=== PATIENT | male | born 1940 | race Caucasian/White ===

== ENCOUNTER 2016-06-02 07:21 | Inpatient (IN) | payer OTHER, BC ==
[2016-05-31 16:55] VITALS: BMI 29.8
[2016-06-02] MEDS ORDERED: HEPARIN NA (PORCINE) 5,000 UNITS/ML 1ML VIAL ONE ×3 (08:36→18:22)
[2016-06-02] MEDS ORDERED: LIDOCAINE HCL 1%, 10 MG/ML (20ML VIAL) ONE ×2 (08:36→16:28)
[2016-06-02] MEDS ORDERED: MIDAZOLAM HCL 2 MG/2 ML SINGLE DOSE VIAL ONE ×2 (08:50→18:09)
[2016-06-02] MEDS ORDERED: PROPOFOL 20 ML ONE ×7 (08:50→18:13)
[2016-06-02] MEDS ORDERED: ePHEDrine SULFATE 50 MG/1 ML AMPULE ONE (08:51)
[2016-06-02] MEDS ORDERED: ceFAZolin SODIUM 1 GM VIAL IVPB ONE (09:39)
[2016-06-02] MEDS ORDERED: LIDOCAINE HCL 1%, 10 MG/ML (20ML VIAL) IJ ONE ×2 (09:45→18:15)
[2016-06-02] MEDS ORDERED: HEPARIN INFUSION - 500 ML IVPB ONE (11:51)
[2016-06-02] MEDS ORDERED: SODIUM CHLORIDE IVPB ONE ×2 (12:00→12:25)
[2016-06-02] MEDS ORDERED: ALTEPLASE IVPB ONE ×2 (12:00→12:25)
[2016-06-02] MEDS ORDERED: SODIUM CHLORIDE 1,000 ML IV SCH ×4 (12:25→19:45)
[2016-06-02] MEDS ORDERED: LACTATED RINGERS SOLUTION 1,000 ML IV SCH ×2 (12:25→17:15)
--- NOTE | 2016-06-02 14:09 | OP ---
Operative Note - Note: Operative Date: 06/02/16 Pre-Operative Diagnosis: RLE claudication Operation: Aortogram, RLE angiogram, GERIATRIC NURSE atherectomy, SFA angioplasty, Popliteal artery angioplatsy, Thrombolysis Findings: Popliteal artery, TP trunk thrombosis Post-Operative Diagnosis: Same as Pre-op Surgeon: Pan Franklin Anesthesia: Fractional Estimated Blood Loss (mls): 150 Operative Report Dictated: Yes
--- NOTE | 2016-06-02 14:11 | HP ---
Admitting History and Physical - Admission Chief Complaint: RLE claudication for 6 months - Advance Directives Advance Directives: Yes: Living Will, Health Care Proxy - Smoking History Smoking history: Current some day smoker Have you smoked in the past 12 months: Yes - Alcohol/Substance Use Hx Alcohol Use: Yes (wine/dinner) Home Medications - Allergies Allergies/Adverse Reactions: Allergies Allergy/AdvReac Type Severity Reaction Status Date / Time Gmqszrd-Sny-Cfx Reductase AdvReac Intermediate Unverified 06/02/16 07:45 Inhibitor - Home Medications Home Medications: Ambulatory Orders Aspirin [ASA -] 325 mg PO DAILY 05/31/16 Cholecalciferol (Vitamin D3) [Vitamin D3 -] 1,000 unit PO DAILY 06/02/16 Folic Acid 0.4 mg PO DAILY 06/02/16 [place]-3 Fatty Acids [Fish Oil] 300 mg PO DAILY 06/02/16 Vitamin B Complex [B Complex # 1] 1 each PO DAILY 06/02/16 Zolpidem Tartrate 10 mg PO PRN PRN 06/02/16 Physical Examination Vital Signs: Vital Signs Temperature 97.7 F 06/02/16 07:43 Pulse Rate 74 06/02/16 07:43 Respiratory Rate 20 06/02/16 07:43 Blood Pressure 113/77 06/02/16 07:43 O2 Sat by Pulse Oximetry (%) 98 06/02/16 07:42 Constitutional: Yes: Well Nourished Eyes: Yes: WNL HENT: Yes: WNL Neck: Yes: WNL Cardiovascular: Yes: WNL Respiratory: Yes: WNL Gastrointestinal: Yes: WNL Assessment/Plan RLE claudication 1. For RLE angiogram today
[2016-06-02] MEDS ORDERED: morphine CARPU-JECT 4 MG/1 ML DISP.SYRIN IVPUSH PRN (15:21)
--- NOTE | 2016-06-02 15:41 | CONSULT ---
Consult Consult Specialty:: Pulm/CCM Referred by:: Pan Franklin Reason for Consultation:: ICU monitoring for TPA gtt - History of Present Illness Chief Complaint: claudication History of Present Illness: 75M with history listed below has had an extensive history of claudication. Patient went to the OR for angiogram atherectomy angioplasty and insertion of ecos catheter for infusion of tpa heparin gtt and saline. patient complaining of LLE calf pain. Denies nausea vomiting fevers chills chest pain or shortness of breath. upon arrical to the ICU patient was immedistely examined found to have a tender and taut calf. Vascular called and at bedside within 2 minutes. Tpa stopped concern for impending compartment syndrome patient to go back to OR. 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 Cardio/Vascular: Yes: CAD (s/p CABGx4 ), HTN, Hyperlipdemia, Other (possible CHF s/p AICD and pacemaker ) Renal/: Yes: Cancer (prostate Ca s/p resection ) Heme/Onc: Yes: Cancer - Past Surgical History Past Surgical History: Yes: AICD, CABG, Permanent Pacemaker - Alcohol/Substance Use Hx Alcohol Use: Yes (wine/dinner) - Smoking History Smoking history: Current some day smoker Have you smoked in the past 12 months: Yes Home Medications - Allergies Allergies/Adverse Reactions: Allergies Allergy/AdvReac Type Severity Reaction Status Date / Time Vpisoqg-Zwm-Wrl Reductase AdvReac Intermediate Unverified 06/02/16 07:45 Inhibitor - Home Medications Home Medications: Ambulatory Orders Aspirin [ASA -] 325 mg PO DAILY 05/31/16 Cholecalciferol (Vitamin D3) [Vitamin D3 -] 1,000 unit PO DAILY 06/02/16 Folic Acid 0.4 mg PO DAILY 06/02/16 [place]-3 Fatty Acids [Fish Oil] 300 mg PO DAILY 06/02/16 Vitamin B Complex [B Complex # 1] 1 each PO DAILY 06/02/16 Zolpidem Tartrate 10 mg PO PRN PRN 06/02/16 Review of Systems - Review of Systems Constitutional: reports: No Symptoms Eyes: reports: No Symptoms HENT: reports: No Symptoms Neck: reports: No Symptoms Cardiovascular: reports: No Symptoms Respiratory: reports: No Symptoms Gastrointestinal: reports: No Symptoms Genitourinary: reports: No Symptoms Breasts: reports: No Symptoms Reported Musculoskeletal: reports: Other (LLE claudication) Physical Exam Vital Signs: Vital Signs Temperature 97.4 F L 06/02/16 12:39 Pulse Rate 60 06/02/16 13:00 Respiratory Rate 16 06/02/16 13:00 Blood Pressure 144/80 06/02/16 13:00 O2 Sat by Pulse Oximetry (%) 98 06/02/16 13:00 Constitutional: Yes: Well Nourished, No Distress, Calm Eyes: Yes: Conjunctiva Clear, EOM Intact HENT: Yes: Atraumatic, Normocephalic Neck: Yes: Supple, Trachea Midline Cardiovascular: Yes: Regular Rate and Rhythm Respiratory: Yes: Wheezes (small amount of wheezing at bases) Gastrointestinal: Yes: Normal Bowel Sounds, Soft, Abdomen, Obese Extremities: Yes: Other (LLE calf is taut and tender to palpation capillary refill is aqequate dopplerable left PT and DP pulse palpable LLE PT pulse able to dorsiflex and plantar flex foot at ankle with some pain. decreased sensation on plantar side of food and lateral left foot) Edema: No Assessment/Plan 75M with multiple medical probelms with a long standing history of claudication presents to the ICU post op after an atherectomy angioplasty angiogram and infusion of TPA Heparin and saline. Claudication: postop day 1 stop Tpa gtt continue hep gtt LR @ 75ml/hr to go back to OR now for removal of ecos catheter HTN: not on meds well controlled HLD: will restart statin when not NPO CAD: restart aspirin when cleared by vascular sx FEN: LR @ 75ml/hr No electrolyte issues npo for now PPx: Hep after OR no GI Ppx needed will consider PT consult
[2016-06-02] MEDS ORDERED: HEPARIN INFUSION - 500 ML IVPB SCH ×3 (16:00→19:24)
--- NOTE | 2016-06-02 16:04 | PN ---
Teaching Attending Note Name of Resident: Hermes Bermeo ATTENDING PHYSICIAN STATEMENT I saw and evaluated the patient. I reviewed the resident's note and discussed the case with the resident. I agree with the resident's findings and plan as documented. SUBJECTIVE: 75 M, with listed medical history. Active daily smoker. Probable Obstructive Sleep Apnea according to his son and clinical history. S/P Aortogram, RLE angiogram, [employer] atherectomy, SFA angioplasty, Popliteal artery angioplatsy, Thrombolysis due to Popliteal artery & TP trunk thrombosis. Now seen in the ICU on IV Heparin and tPA. Noted to have increased pain and swelling of the LLE. Intake & Output 05/30/16 05/31/16 06/01/16 06/02/16 23:59 23:59 23:59 23:59 Intake Total 1300 Output Total 550 Balance 750 Weight 220 lb Last Vital Signs Temp Pulse Resp BP Pulse Ox 98.7 F 62 18 152/82 100 06/02/16 14:30 06/02/16 14:30 06/02/16 14:30 06/02/16 14:30 06/02/16 14:15 Active Medications Alteplase, Recombinant 15 mg/ (Sodium Chloride) 150 mls @ 10 mls/hr IVPB ONCE ONE Stop: 06/03/16 03:24 Sodium Chloride (Normal Saline -) 1,000 mls @ 50 mls/hr IV ASDIR ANNIKA Lactated Ringer's (Lactated Ringers Solution) 1,000 mls @ 75 mls/hr IV ASDIR ANNIKA Heparin Sodium/Dextrose (Heparin Infusion -) 500 mls @ 10 mls/hr IVPB TITR ANNIKA ; 500 UNITS/HR PRN Reason: Protocol Morphine Sulfate (Morphine Injection -) 4 mg IVPUSH Q6H PRN Constitutional: Yes: Well Nourished, No Distress, Calm Eyes: Yes: Conjunctiva Clear, EOM Intact HENT: Yes: Atraumatic, Normocephalic Neck: Yes: Supple, Trachea Midline Cardiovascular: Yes: Regular Rate and Rhythm Respiratory: Yes: Wheezes (small amount of wheezing at bases) Gastrointestinal: Yes: Normal Bowel Sounds, Soft, Abdomen, Obese Extremities: Yes: LLE calf is taut and tender to palpation, capillary refill delayed (+) pain on dorsiflexion Edema: Yes Assessment/Plan S/P Aortogram, RLE angiogram, [employer] atherectomy, SFA angioplasty, Popliteal artery angioplatsy, Thrombolysis due to popliteal artery & TP trunk thrombosis Active smoker -> likely COPD, currently not in AE (+) clinical history consistent with Obstructive Sleep Apnea PLAN: D/W Vascular surgery -> Will return for OR O2 as needed BD TX as needed Outpatient PFTs as an outpatient once stable Will need formal sleep screening after discharge AC as ordered by vascular surgery ICU monitoring Dr Manrique CCTime [phone]"
[2016-06-02] MEDS ORDERED: HEPARIN NA (PORCINE) 5,000 UNITS/ML 1ML VIAL IVPUSH PRN ×6 (16:09→19:24)
[2016-06-02] MEDS ORDERED: ONDANSETRON 4 MG/2 ML VIAL IVPUSH PRN ×2 (17:08→18:48)
[2016-06-02] MEDS ORDERED: LIDOCAINE HCL/PF 2% SDV 5ML VIAL ONE (18:14)
[2016-06-02] MEDS ORDERED: PROMETHAZINE HCL 25 MG/1 ML VIAL IVPUSH PRN (18:48)
--- NOTE | 2016-06-02 19:08 | OP ---
Operative Note - Note: Operative Date: 06/02/16 Pre-Operative Diagnosis: RLE thrombosis Operation: RLE angiogram, [employer]DER DCB angioplasty Post-Operative Diagnosis: Same as Pre-op Surgeon: Pan Franklin Anesthesia: Fractional Estimated Blood Loss (mls): 20 Operative Report Dictated: Yes
[2016-06-02] MEDS ORDERED: ZOLPIDEM TARTRATE 5 MG TABLET PO PRN (21:10)
[2016-06-02 23:23] VITALS: PULSE 60
[2016-06-03 06:40] VITALS: BP 127/74; TEMP 98
[2016-06-03] MEDS ORDERED: HEPARIN NA (PORCINE) 5,000 UNITS/ML 1ML VIAL ONE (07:12)
[2016-06-03] MEDS ORDERED: LIDOCAINE HCL 1%, 10 MG/ML (20ML VIAL) ONE (07:12)
[2016-06-03 07:57] LABS: BASOPHIL 0.5 % (0-2.0); EOSINOPHIL 2.3 % (0-4.5); MCH 32.6 pg (25.7-33.7); MEAN CELL VOLUME 98.8 fl (80-96); NEUTROPHILS 69.9 % (42.8-82.8); PLATELET COUNT 107 K/MM3 (134-434); RDW 15.6 % (11.9-15.9); WHITE BLOOD COUNT 7.4 K/mm3 (4.0-10.0)
[2016-06-03 08:41] LABS: ALBUMIN 2.9 g/dl (3.4-5.0); ANION GAP 6 (8-16); CALCIUM 8.1 mg/dL (8.5-10.1); CO2 28 mmol/L (21-32); CREATININE 0.7 mg/dL (0.7-1.3); GLUCOSE,RANDOM 105 mg/dL (74-106); SGOT/AST 14 U/L (15-37); SGPT/ALT 17 U/L (12-78)
[2016-06-03 08:43] LABS: ALK PHOS 40 U/L (45-117); BILIRUBIN,TOTAL 0.7 mg/dL (0.2-1.0)
--- NOTE | 2016-06-03 10:09 | PN ---
Teaching Attending Note Name of Resident: Hermes Bermeo ATTENDING PHYSICIAN STATEMENT I saw and evaluated the patient. I reviewed the resident's note and discussed the case with the resident. I agree with the resident's findings and plan as documented. SUBJECTIVE: Patient seen and examined in the ICU. Awake and alert. LLE improved from yesterday. No CP or SOB. Intake & Output 05/31/16 06/01/16 06/02/16 06/03/16 23:59 23:59 23:59 23:59 Intake Total 1875 1001 Output Total 1025 500 Balance 850 501 Weight 220 lb 220 lb 7.396 oz Last Vital Signs Temp Pulse Resp BP Pulse Ox 98 F 60 17 127/74 100 06/03/16 06:00 06/03/16 06:00 06/03/16 08:36 06/03/16 06:00 06/03/16 08:36 Active Medications Heparin Sodium (Porcine) (Heparin -) 1,000 unit IVPUSH PRN PRN PRN Reason: Heparin Heparin Sodium (Porcine) (Heparin -) 5,000 unit IVPUSH PRN PRN PRN Reason: Heparin Heparin Sodium/Dextrose (Heparin Infusion -) 500 mls @ 10 mls/hr IVPB TITR ANNIKA ; 500 UNITS/HR PRN Reason: Protocol Last Titration: 06/02/16 20:00 Dose: 800 units/hr Sodium Chloride (Normal Saline -) 1,000 mls @ 75 mls/hr IV ASDIR ANNIKA Last Admin: 06/02/16 20:00 Dose: 75 mls/hr Zolpidem Tartrate (Ambien -) 10 mg PO HS PRN PRN Reason: INSOMNIA Last Admin: 06/02/16 21:12 Dose: 10 mg Constitutional: Yes: Well Nourished, No Distress, Calm Eyes: Yes: Conjunctiva Clear, EOM Intact HENT: Yes: Atraumatic, Normocephalic Neck: Yes: Supple, Trachea Midline Cardiovascular: Yes: Regular Rate and Rhythm Respiratory: Yes: Wheezes (small amount of wheezing at bases) Gastrointestinal: Yes: Normal Bowel Sounds, Soft, Abdomen, Obese Extremities: Yes: LLE calf is soft and less tender to palpation Edema: Yes Laboratory Results - last 24 hr 06/03/16 06/03/16 06/03/16 01:30 07:30 07:30 WBC RBC Hgb Hct MCV MCHC RDW Plt Count MPV Neutrophils % Lymphocytes % Monocytes % Eosinophils % Basophils % PTT (Actin FS) 56.0 H 49.6 H Sodium 142 Potassium 5.0 Chloride 108 H Carbon Dioxide 28 Anion Gap 6 L BUN 15 Creatinine 0.7 Creat Clearance w eGFR > 60 Random Glucose 105 Calcium 8.1 L Total Bilirubin 0.7 AST 14 L ALT 17 Alkaline Phosphatase 40 L Total Protein 5.0 L Albumin 2.9 L 06/03/16 07:30 WBC 7.4 RBC 3.51 L D Hgb 11.5 L D Hct 34.7 L D MCV 98.8 H MCHC 33.0 RDW 15.6 Plt Count 107 L D MPV 10.0 Neutrophils % 69.9 Lymphocytes % 16.3 D Monocytes % 11.0 H D Eosinophils % 2.3 Basophils % 0.5 PTT (Actin FS) Sodium Potassium Chloride Carbon Dioxide Anion Gap BUN Creatinine Creat Clearance w eGFR Random Glucose Calcium Total Bilirubin AST ALT Alkaline Phosphatase Total Protein Albumin Assessment/Plan S/P Aortogram, RLE angiogram, FLIGHT HOSTESS atherectomy, SFA angioplasty, Popliteal artery angioplatsy, Thrombolysis due to popliteal artery & TP trunk thrombosis Active smoker -> likely COPD, currently not in AE (+) clinical history consistent with Obstructive Sleep Apnea PLAN: Need to D/W Cardiology further AC management O2 as needed BD TX as needed Outpatient PFTs as an outpatient once stable Will need formal sleep screening after discharge D/C planning Dr Manrique
--- NOTE | 2016-06-03 10:26 | PN ---
Progress Note (short form) - Note Progress Note: Anesthesia POD#1 S/P left angiogram/angioplasty under Mac Awake alert & oriented,stable vitals,no nausea. No cmplications to anesthesia seen. Martha Dupree.
--- NOTE | 2016-06-03 11:37 | PN ---
Progress Note, Physician History of Present Illness: seen and examined in ICU doing well today no complaints - Current Medication List Current Medications: Active Medications Heparin Sodium (Porcine) (Heparin -) 1,000 unit IVPUSH PRN PRN PRN Reason: Heparin Heparin Sodium (Porcine) (Heparin -) 5,000 unit IVPUSH PRN PRN PRN Reason: Heparin Heparin Sodium/Dextrose (Heparin Infusion -) 500 mls @ 10 mls/hr IVPB TITR ANNIKA ; 500 UNITS/HR PRN Reason: Protocol Last Titration: 06/02/16 20:00 Dose: 800 units/hr Sodium Chloride (Normal Saline -) 1,000 mls @ 75 mls/hr IV ASDIR ANNIKA Last Admin: 06/02/16 20:00 Dose: 75 mls/hr Zolpidem Tartrate (Ambien -) 10 mg PO HS PRN PRN Reason: INSOMNIA Last Admin: 06/02/16 21:12 Dose: 10 mg - Objective Vital Signs: Vital Signs Temperature 98 F 06/03/16 06:00 Pulse Rate 60 06/03/16 06:00 Respiratory Rate 17 06/03/16 08:36 Blood Pressure 127/74 06/03/16 06:00 O2 Sat by Pulse Oximetry (%) 100 06/03/16 08:36 Constitutional: Yes: Well Nourished, No Distress, Calm Eyes: Yes: Conjunctiva Clear, EOM Intact HENT: Yes: Atraumatic, Normocephalic Neck: Yes: Supple, Trachea Midline Cardiovascular: Yes: Regular Rate and Rhythm Respiratory: Yes: Wheezes (small amount of wheezing at bases) Gastrointestinal: Yes: Normal Bowel Sounds, Soft, Abdomen, Obese Extremities: Yes: Other (LLE calf is much softer today much less taut and less tender to palpation capillary refill is aqequate dopplerable left PT and DP pulse) Edema: No Labs: CBC, BMP 06/03/16 07:30 06/03/16 07:30 Assessment/Plan 75M with multiple medical probelms with a long standing history of claudication presents to the ICU post op after an atherectomy angioplasty angiogram and infusion of TPA Heparin and saline. critical limb ischemia: s/p angiogram and thrombolysis with atherectomy HTN: not on meds well controlled HLD: will restart statin when not NPO CAD: cardiology consult for possibly starting angiocoaulation with a NOAC FEN: stop IVF No electrolyte issues reg diet PPx: HSQ no GI Ppx needed PT consult will discharge home today if cleared by cardiology
--- NOTE | 2016-06-03 12:01 | CONSULT ---
Consult Consult Specialty:: Cardiology Referred by:: Dr Anglin Reason for Consultation:: RLE thrombosis - History of Present Illness History of Present Illness: 75 yo male wit the documented history as below, here for RLE angiplasty -. found with large clot He underwent successful angioplasty and fells well. The question, however, is how he got the clot and whther she should be anticoagulated He denies CP, SOB, palpitations or dizziness He had amara-op afib in 2008. He now tells me that he was on coumadin along time ago (per Dr Martin, his card then) -. had trouble regulating his levels [facility] Atherosclerotic heart disease of tetlin coronary artery without angina pectoris 1993 inferior wall myocardial infarction 10/14 attempt at PCTA unsuccessful. Emergency coronary artery bypass graft surgery [place] SVGD1 SVGM 2 SVGPLV branch 09/18 no ischemia large inferior apical lateral infarct Lexiscan sestamibi study. Ventricular tachycardia 10/14 AICD implant Medtronic D1 54 AW C . Self decreased amiodarone dose. ventricular tachycardia at 160/minute terminated by antitachycardia pacing. Asymptomatic.Detected by interrogation. Paroxysmal atrial fibrillation Paroxysmal atrial fibrillation prior to 10/14 coronary artery bypass graft surgery and perioperatively. No recurrence. Hyperlipidemia Intolerant of multiple medical interventions Cardiomyopathy Dilated ischemic cardiomyopathy. No clinical congestive heart failure. Left ventricular ejection fraction 35% 10/14 left ventriculogram 3540% 09/18 gated sestamibi study 04/22 technically limited echocardiogram ejection fraction normal versus low normal. End-diastolic dimension 5.9 cm Valvular heart disease 04/22 echocardiogram technically limited study mild mitral insufficiency left ventricular systolic function normal versus low normal PAD (peripheral artery disease) 04/22 arterial Doppler abnormal. Details, study not available for review TIA (transient ischemic attack) Symptoms of visual disturbance. Prostate carcinoma Surgical resection Hypothyroid Lyme disease COPD (chronic obstructive pulmonary disease) Mild by pulmonary function tests details not available. Gastroesophageal reflux PSH Coronary artery bypass graft, 10/14 Emergency coronary artery bypass graft surgery following failed PCTA. See prior medical history Cardiac defibrillator placement, 10/14 AICD for ventricular tachycardia. Prostate surgery, 2004 Radical prostatectomy for carcinoma. Details not available. 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 Cardio/Vascular: Yes: CAD (s/p CABGx4 ), HTN, Hyperlipdemia, Other (possible CHF s/p AICD and pacemaker ) Renal/: Yes: Cancer (prostate Ca s/p resection ) - Past Surgical History Past Surgical History: Yes: AICD, CABG, Permanent Pacemaker - Alcohol/Substance Use Hx Alcohol Use: Yes (wine/dinner) - Smoking History Smoking history: Current some day smoker Have you smoked in the past 12 months: Yes Home Medications - Allergies Allergies/Adverse Reactions: Allergies Allergy/AdvReac Type Severity Reaction Status Date / Time Ngirjet-Ozv-Wvs Reductase AdvReac Intermediate Unverified 06/02/16 07:45 Inhibitor - Home Medications Home Medications: Ambulatory Orders Aspirin [ASA -] 325 mg PO DAILY 05/31/16 Cholecalciferol (Vitamin D3) [Vitamin D3 -] 1,000 unit PO DAILY 06/02/16 Folic Acid 0.4 mg PO DAILY 06/02/16 [place]-3 Fatty Acids [Fish Oil] 300 mg PO DAILY 06/02/16 Vitamin B Complex [B Complex # 1] 1 each PO DAILY 06/02/16 Zolpidem Tartrate 10 mg PO PRN PRN 06/02/16 Review of Systems - Review of Systems Constitutional: reports: Other (fatigue) Eyes: reports: No Symptoms HENT: reports: No Symptoms Neck: reports: No Symptoms Cardiovascular: reports: Shortness of Breath, Other (R legclaudication) Gastrointestinal: reports: No Symptoms Musculoskeletal: reports: Back Pain, Joint Pain Neurological: reports: No Symptoms Physical Exam Vital Signs: Vital Signs Temperature 98 F 06/03/16 06:00 Pulse Rate 60 06/03/16 06:00 Respiratory Rate 17 06/03/16 08:36 Blood Pressure 127/74 06/03/16 06:00 O2 Sat by Pulse Oximetry (%) 100 06/03/16 08:36 Constitutional: Yes: No Distress Eyes: Yes: Conjunctiva Clear HENT: Yes: Atraumatic Neck: Yes: Supple Cardiovascular: Yes: Regular Rate and Rhythm Respiratory: Yes: CTA Bilaterally Gastrointestinal: Yes: Normal Bowel Sounds, Abdomen, Obese. No: Tenderness Extremities: Yes: Other (warm) Edema: No Peripheral Pulses WNL: Yes Neurological: Yes: Alert, Oriented Psychiatric: Yes: Alert, Oriented Labs: CBC, BMP 06/03/16 07:30 06/03/16 07:30 Imaging - Results Other: Other (04/22 echocardiogram: Technically limited study left ventricular dilatation, mild end-diastolic dimension 5.9 cm. Left ventricular function normal versus low normal. Mitral insufficiency, mild. Left ventricular diastolic dysfunction, mild. Tele -. Sr wit demand V paving) Assessment/Plan 75 yo male with the above history, here with RLEclaudication -. s/p angioplasty Howevr, found with large clot 0f unclear etiology I think patient should be anticoagulated, at least in the short term, until further work-up for occult afib to determine if long--term AC needed, and for threatment of the clot Rec: Eliquis 5 bid Cont ASA and plavix (at least for now -> poer my conversation with Dr anglin, plavix may be considered for d/c after a month or so) Cont other meds May be d/yanet home after ambulation Follow-up with Dr Howe with 1-2 weeks
--- NOTE | 2016-06-03 19:24 | PN ---
Progress Note (short form) - Note Progress Note: Vascular surgery- Dr. Franklin Patient seen and evaluated by Dr. Franklin, cleared for discharge
--- NOTE | 2016-06-16 11:37 | OP ---
DATE OF OPERATION: 06/02/2016 PREOPERATIVE DIAGNOSIS: Right lower extremity thrombosis. POSTOPERATIVE DIAGNOSIS: Right lower extremity thrombosis. PROCEDURE: Right lower extremity angiogram common femoral artery drug-coated balloon angioplasty. SURGEON: Pan Jin DO ANESTHESIA: Fractional. ESTIMATED BLOOD LOSS: 20 mL. INDICATIONS: The patient is a 75-year-old male who had an angiogram earlier this morning where we found thrombosis of his right lower extremity. At that time, we placed a thrombolysis catheter and performed thrombolysis of his popliteal artery and TP trunk and his tibial arteries. He was then sent to the ICU where he had thrombolysis for about 2 hours and then developed some calf swelling, and we turned off his tPA. He is now being brought back with his foot now nice and pink with a palpable pulse and coming back for a thrombolysis check. The patient was consented for this procedure understanding all risks, benefits, and alternatives and then taken to the operating room. DESCRIPTION OF PROCEDURE: Once in the operating room, was laid on the operating room table in supine manner. The area of the right leg and groin were all prepped and draped in a sterile surgical manner. We then took out of thrombolysis catheter and shot an angiogram of the right lower extremity showing that the popliteal artery was patent, the TP trunk was patent, and there was good runoff into the foot. At this point since he had good runoff, the patient had significant stenosis in the common femoral artery, and we used a 5 x 4 drug-coated balloon to perform angioplasty of the right common femoral artery. Completion angiogram showed that the common femoral artery was now patent. There was good blood flow down to the foot. We then brought our sheath up and over, and StarClose device was successfully deployed in the left common femoral artery. Pressure held for 5 minutes. After there was no bleeding, the area was wet and dried, and Dermabond was placed. The patient was transferred to the PACU in stable condition where heparin drip was continued due to the fact that he had thrombosis in his right lower extremity. His right lower extremity was warm and pink with a palpable pulse. Total blood loss 20 mL. PAN JIN DO [facility] [employer] FORMER/[id number]
== END 2016-06-03 13:20 | disposition home or self-care (01) | DRG 271 ==
LOC: JASUSAT 07:21 → JSAMEDAYSX 14:03 → JICU 14:52
PROVIDERS: ADMIT Surgery Vascular Surgery; ATTEND Surgery Vascular Surgery
PROC: 047M3ZZ Dilation of Right Popliteal Artery, Percutaneous Approach (ICD-10-PCS; 2016-06-02)
PROC: 3E033GC Introduction of Other Therapeutic Substance into Peripheral Vein, Percutaneous Approach (ICD-10-PCS; 2016-06-02)
PROC: 04CK3ZZ Extirpation of Matter from Right Femoral Artery, Percutaneous Approach (ICD-10-PCS; principal; 2016-06-02 09:00)
DX: I82.431 Acute embolism and thrombosis of right popliteal vein (principal); I42.8 Other cardiomyopathies; I25.10 Atherosclerotic heart disease of native coronary artery without angina pectoris; I10 Essential (primary) hypertension; E78.5 Hyperlipidemia, unspecified; F17.200 Nicotine dependence, unspecified, uncomplicated; G47.33 Obstructive sleep apnea (adult) (pediatric); J44.9 Chronic obstructive pulmonary disease, unspecified; I48.0 Paroxysmal atrial fibrillation; E03.9 Hypothyroidism, unspecified; K21.9 Gastro-esophageal reflux disease without esophagitis; I73.89 Other specified peripheral vascular diseases; Z95.810 Presence of automatic (implantable) cardiac defibrillator; Z85.46 Personal history of malignant neoplasm of prostate; Z86.73 Personal history of transient ischemic attack (TIA), and cerebral infarction without residual deficits
CPT/HCPCS: 36415; 76000-TC; 76001-TC; 80053; 85025; 85730; 94760; G0463-25; J1644

== ENCOUNTER 2021-12-21 13:15 | Emergency (ER) | payer OTHER, BC ==
[2021-12-21] MEDS ORDERED: DIPHTH,PERTUSS(ACELL),TET 0.5 ML DISP.SYRIN IM ONE ×2 (14:15→14:26)
[2021-12-21 14:19] VITALS: BP 160/98; PULSE 73; RESP 18; TEMP 97.5; BMI 27.1
== END 2021-12-21 14:51 | disposition home or self-care (01) ==
LOC: FER 13:15
PROC: 3E0234Z Introduction of Serum, Toxoid and Vaccine into Muscle, Percutaneous Approach (ICD-10-PCS; principal; 2021-12-21)
DX: S40.211A Abrasion of right shoulder, initial encounter (principal); S00.81XA Abrasion of other part of head, initial encounter; W19.XXXA Unspecified fall, initial encounter; Y92.9 Unspecified place or not applicable
CPT/HCPCS: 70450-TC; 73030-TC-RT-FY; 90715; 93005; 99284-25

== ENCOUNTER 2022-02-28 14:53 | Emergency (ER) | payer OTHER, BC ==
[2022-02-28 15:07] VITALS: BP 126/81; PULSE 66; RESP 18; TEMP 98.8; BMI 27.5
[2022-02-28 16:18] LABS: HEMATOCRIT 43.5 % (35.4-49); HEMOGLOBIN 14.6 G/dL (11.7-16.9); MCH 33.5 pg (25.7-33.7); MCHC 33.5 g/dl (32.0-35.9); MEAN PLT VOLUME 9.6 fl (7.5-11.1); PLATELET COUNT 153.4 10^3/uL (134-434); RBC 4.35 10^6/uL (4.00-5.60); RDW 14.6 % (11.9-15.9); WHITE BLOOD COUNT 9.9 10^3/uL (4.0-10.8)
[2022-02-28 16:37] LABS: ALBUMIN 3.6 g/dl (3.4-5.0); BILIRUBIN,TOTAL 1.2 mg/dl (0.2-1); CALCIUM 9.2 mg/dl (8.5-10); TOT PROT 6.6 g/dl (6.4-8.2)
[2022-02-28 18:04] LABS: PLATELET ESTIMATE ADEQUATE
[2022-02-28 18:05] LABS: ANISOCYTOSIS 1+
== END 2022-02-28 17:30 | disposition home or self-care (01) ==
LOC: FER 14:53
DX: R05.1 Acute cough (principal); S09.90XA Unspecified injury of head, initial encounter; Z79.01 Long term (current) use of anticoagulants
CPT/HCPCS: 0241U-QW; 36415; 70450-TC; 71046-TC-FY; 72125-TC; 80053; 85027; 99284-25